=== PATIENT | male | born 1985 | race Hispanic/Latino ===

== ENCOUNTER 2023-12-10 19:01 | Emergency (ER) | payer SELFPAY ==
[2023-12-10 19:05] VITALS: BP 135/87
--- NOTE | 2023-12-10 21:54 | ED.SKININJ ---
HPI-Injury
General
Chief Complaint: Skin Surface Trauma
Source: patient
Exam Limitations: none
Time Seen by Provider: 12/10/23 20:33
Travel History
Have you had any contact with someone who has COVID-19?: No
Do you have any symptoms of coronavirus? Fever > 100 degrees, chills, cough, shortness of breath, sore throat, loss of taste or smell, muscle aches, or headache?: No
History of Present Illness-Injury
Initial Injury comments:
38-year-old male [id number] presents with laceration to left thumb he sustained today. Cut himself with a knife cooking dinner. Last tetanus unknown. No numbness or tingling or loss of function. No other complaints
Phy Exam
Physical Exam
Physical Exam:
General: Well-appearing male no acute distress
Skin: 1 cm superficial avulsion type laceration volar aspect distal portion left thumb with mild bleeding no tendon involvement
Musculoskeletal exam: Good range of motion left thumb
Neurologic: Good sensation left thumb
Course
Vital Signs
Initial and Last Documented VS:
Initial Vital Signs
Temp Pulse Resp BP Pulse Ox
98 F 125 20 135/87 96
12/10/23 19:05 12/10/23 19:05 12/10/23 19:05 12/10/23 19:05 12/10/23 19:05
Last Documented Vital Signs
Temp Pulse Resp BP Pulse Ox
98 F 125 20 135/87 96
12/10/23 19:05 12/10/23 19:05 12/10/23 19:05 12/10/23 19:05 12/10/23 19:05
MDM/Problems Addressed
Differential Diagnosis Includes:
Avulsion laceration left thumb no sutures indicated. The wound was irrigated with saline and anesthetized with 1% lidocaine and then cauterized with silver nitrate. A nonstick gauze dressing was applied
*Critical Care Note
Total Time (30-74mins, 75-104mins- exclusive of procedures): Not Applicable
ED Attending Note
-
Portions of this chart may have been created with voice recognition software.� Occasional wrong word or��sound alike� substitutions may have occurred due to the inherent limitations of voice recognition software.
Discharge Plan
Departure
Patient Disposition: Home (Routine Discharge)
Date of Disposition: 12/10/23
Time of Disposition: 21:57
Patient with high blood pressure during this ER visit?: No
Discharge Problem:
Laceration
Instructions: Wound Care (DC)
Referrals:
UNKNOWN - PT DOES,NOT KNOW [Family Provider] -
Activity Restrictions/Additional Instructions:
Keep clean. Return here for worsening symptoms. Follow-up with Dr. Forde
Interventions
Interventions:
*Risk Screen - Suicide Last Done: 12/10/23 19:05
*General Assessment Last Done: 12/10/23 19:05
*Neglect/Abuse Screening Last Done: 12/10/23 19:05
ED-Skin Assessment Last Done: 12/10/23 21:54
Discharge Date and Time
Print Language: [email or web address]
[2023-12-10] MEDS: ADACEL 0.5 ML IM (21:59)
== END 2023-12-10 22:05 | disposition home or self-care (01) ==
LOC: EMR 19:01
PROVIDERS: EMERGENCY PHYSICIAN Emergency Medicine
DX: S61.012A Laceration without foreign body of left thumb without damage to nail, initial encounter (principal); W26.0XXA Contact with knife, initial encounter; Y93.G3 Activity, cooking and baking; Z23 Encounter for immunization
CPT/HCPCS: 99282; 90471; 90715